=== PATIENT | male | born 1970 | race Caucasian/White ===

== ENCOUNTER → 2017-08-15 | Outpatient (CLI) | payer OTHER ==
[~2017-08-15] MED LIST: ALBIPROI; ALBU3IS INH; ALBU90OI; ALBU90OI INH; ALBU90OI61 INH; ALBUTEROL INH; AMIT50; AMITRIPTYLINE; AMOX500; AMOX500 PO; ASPI325 PO; AZIT500 PO; BENZ100A PO; CARI350; CEPH500 PO; CIME400 PO; CIPR750 PO; CLARITIN OTC; CLON2 PO; CYCL10 PO; DICL25ER PO; DULO30 PO; DULO60 PO; ERYT.5TO BOTHEYES; ERYT250; ERYT500 PO; ETOD200 PO; FLUO10 PO; FLUT220OIA; FLUT44OIA INH; FURO40 PO; HYDACE10B PO; HYDACE5 PO; HYDGUAL120; HYDGUAL120 PO; HYDMOR2 PO; HYDMOR4 PO; IBUP600 PO; IBUP800 PO; Inderal40 MG PO; LATUDA40 MG PO; LIDO700A20 TOP; LORA10ER PO; LORA2 PO; Lasix 10 mg/10 MG/ML PO; METO2.5 PO; MULVITMIND PO; OXYACE5T; OXYACE5T PO; PENVK250; POTCHL20ER PO; PRED10 PO; PRED20 PO; PROACE100 PO; PROM25 PO; PROP10 PO; Percocet 5-3251 EACH PO; RXSULTRIDS PO; Robaxin500 MG PO; SALMOI6.5; SERT100 PO; SULTRIDS PO; SYMBAX; SYMBYAX; TESTOSTERONE; TRAM50 PO; [UNRECOGNIZED DRUG - OTHER] INH; [UNRECOGNIZED DRUG - REMARK]; [UNRECOGNIZED DRUG - REMARK]
[2017-08-15 20:19] LABS: BASOPHILS ABSOLUTE AUTO 0.05 K/mm3 (0.00-0.23); BASOPHILS PERCENT AUTO 1 % (0-2); EOSINOPHILS ABSOLUTE AUTO 0.11 K/mm3 (0.00-0.68); EOSINOPHILS PERCENT AUTO 2 % (0-6); Hemoglobin 18.7 g/dL (13.5-17.5); IMMATURE GRAN ABSOLUTE AUTO 0.01 K/mm3 (0.00-0.10); IMMATURE GRAN PERCENT AUTO 0 % (0-1); LYMPHOCYTES ABSOLUTE AUTO 2.55 K/mm3 (0.84-5.20); LYMPHOCYTES PERCENT AUTO 40 % (21-46); MONOCYTES ABSOLUTE AUTO 0.37 K/mm3 (0.16-1.47); MONOCYTES PERCENT AUTO 6 % (4-13); Mean Corpuscular HGB 29.9 pg (26.0-34.0); Mean Corpuscular HGB Conc 32.7 g/dL (31.5-36.5); Mean Corpuscular Volume 92 fL (80-100); NEUTROPHILS ABSOLUTE AUTO 3.36 K/mm3 (1.96-9.15); NEUTROPHILS PERCENT AUTO 52 % (41-73); RDW Coefficient Variation 12.4 % (11.7-14.2); Red Blood Cell Count 6.25 M/mm3 (4.30-5.90); White Blood Cell Count 6.45 K/mm3 (4.00-11.30)
[2017-08-15 20:23] LABS: Hematocrit 57.2 % (37.0-53.0); Mean Platelet Volume 11.4 fL (9.1-12.4); Platelet Count 140 K/mm3 (150-400)
[2017-08-15 21:08] LABS: Alanine Aminotransfer (ALT/SGP 10 U/L (12-78); Albumin, Blood 3.8 g/dL (3.4-5.0); Alk Phos 140 U/L (50-136); Anion Gap 7 mmol/L (6-16); Aspartate Aminotrans (AST/SGOT 16 U/L (12-37); Bilirubin, Total 0.5 mg/dL (0.1-1.0); Blood Urea Nitrogen 8 mg/dL (8-24); Bun/Creatinine Ratio 10.9 (12.0-20.0); CO2, Blood 31 mmol/L (21-32); Calcium, Blood 8.6 mg/dL (8.5-10.1); Chloride, Blood 100 mmol/L (98-108); Creatinine, Blood 0.74 mg/dL (0.60-1.20); Globulin, Blood 3.9 g/dL (2.2-4.0); Glomerular Filtration Rate >60 (60-); Glucose, Blood 83 mg/dL (70-99); Potassium, Blood 3.9 mmol/L (3.5-5.5); Sodium, Blood 138 mmol/L (136-145); Total Protein, Blood 7.7 g/dL (6.4-8.2)
== END | disposition home or self-care (01) ==
LOC: LAB SHORT 17:30
PROVIDERS: Nurse Practitioner Family
DX: R60.9 Edema, unspecified (principal); R82.99 Other abnormal findings in urine
CPT/HCPCS: 80053; 83880; 85025; 87086

== ENCOUNTER 2017-10-18 21:03 | Emergency (ER) | payer OTHER ==
[~2017-10-18] VITALS: Ht 198.1 cm; Wt 179.6 kg
[~2017-10-18 21:03] MED LIST changes: -FLUO10 PO; -LIDO700A20 TOP; -Robaxin500 MG PO
[2017-10-18] MEDS ORDERED: FLUO10 PO (21:54)
[2017-10-18] MEDS ORDERED: Robaxin500 MG PO (23:23)
[2017-10-18] MEDS ORDERED: LIDO700A20 TOP (23:23)
== END 2017-10-18 23:36 | disposition home or self-care (01) ==
LOC: ER 21:03
DX: M54.2 Cervicalgia (principal); M54.5 Low back pain; Z88.8 Allergy status to other drugs, medicaments and biological substances; Z88.0 Allergy status to penicillin; Z88.5 Allergy status to narcotic agent; Z91.048 Other nonmedicinal substance allergy status; Z88.2 Allergy status to sulfonamides; Z88.1 Allergy status to other antibiotic agents; Z79.899 Other long term (current) drug therapy; J44.9 Chronic obstructive pulmonary disease, unspecified; F17.210 Nicotine dependence, cigarettes, uncomplicated; V43.62XA Car passenger injured in collision with other type car in traffic accident, initial encounter
CPT/HCPCS: 72040; 96372; 99283; J1885

== ENCOUNTER → 2020-04-06 | Outpatient (CLI) | payer OTHER ==
[~2020-04-06] MED LIST changes: +FLUO10 PO; +LIDO700A20 TOP; +Robaxin500 MG PO
[2020-04-08 11:10] LABS: COTININE Negative ng/mL (Cutoff=300)
== END | disposition home or self-care (01) ==
LOC: LAB SHORT 09:36 → LAB 09:36
PROVIDERS: Orthopaedic Surgery
DX: Z01.812 Encounter for preprocedural laboratory examination (principal); M17.11 Unilateral primary osteoarthritis, right knee; F17.200 Nicotine dependence, unspecified, uncomplicated

== ENCOUNTER 2020-05-17 06:45 | Day surgery (SDC) | payer OTHER ==
[~2020-05-17] VITALS: Ht 198.1 cm; Wt 173.0 kg
[~2020-05-17 06:45] MED LIST changes: +BUDESONIDE1 MG/2 M1 NEB; +MIRALAX17 GM PO; +MONT10T PO; +NAPR500 PO; +TRAZ100 PO
[2020-05-17] MEDS ORDERED: Chantix1 MG PO (13:22)
--- NOTE | 2020-05-17 15:58 | NUR ---
PT ARRIVED TO THE ROOM FROM PACU AT APPROXIMATLEY 1330. PT AWAKE AND ORIENTED BUT DROWSY UPON ARRIVAL. R KNEE DRESSING C/D/I. PT ABLE TO WIGGLE HIS TOES. CAP REFIL WNL. PT RATED PAIN AT 8/10 BUT APPEARS RELAXED. KARON PROVIDED PT WITH OXYCODONE TO MANAGE PAIN. PT TOLERATING FOOD AND FLUIDS. VSS. WILL MONITOR UNTIL REPORT TO ONCOMING RN.
--- NOTE | 2020-05-17 18:05 | NUR ---
SHIFT SUMMARY PT IS POD#0 FROM A R TKA WITH DR. LEON. PAIN MANAGED WITH PO PAIN MEDICATION. PT TOLERATING FOOD AND FLUIDS, VOIDING AND WORKED WITH THERAPY. PLAN FOR DC HOME TOMORROW AFTER PT CLEARS THERAPY. VSS. WILL MONITOR UNTIL REPORT TO ONCOMING RN.
[2020-05-18 05:14] LABS: BASOPHILS ABSOLUTE AUTO 0.02 K/mm3 (0.00-0.23); BASOPHILS PERCENT AUTO 0 % (0-2); EOSINOPHILS PERCENT AUTO 0 % (0-6); Hematocrit 42.7 % (37.0-53.0); Hemoglobin 13.8 g/dL (13.5-17.5); IMMATURE GRAN ABSOLUTE AUTO 0.06 K/mm3 (0.00-0.10); IMMATURE GRAN PERCENT AUTO 0 % (0-1); LYMPHOCYTES PERCENT AUTO 10 % (21-46); MONOCYTES ABSOLUTE AUTO 0.85 K/mm3 (0.16-1.47); MONOCYTES PERCENT AUTO 6 % (4-13); Mean Corpuscular HGB 29.2 pg (26.0-34.0); Mean Corpuscular HGB Conc 32.3 g/dL (31.5-36.5); Mean Corpuscular Volume 90 fL (80-100); Mean Platelet Volume 10.2 fL (9.1-12.4); NEUTROPHILS ABSOLUTE AUTO 12.23 K/mm3 (1.96-9.15); NEUTROPHILS PERCENT AUTO 84 % (41-73); Platelet Count 157 K/mm3 (150-400); RDW Standard Deviation 40.4 fL (35.1-46.3); Red Blood Cell Count 4.73 M/mm3 (4.30-5.90); White Blood Cell Count 14.56 K/mm3 (4.00-11.30)
[2020-05-18 05:38] LABS: Anion Gap 3 mmol/L (6-16); Blood Urea Nitrogen 13 mg/dL (8-24); Bun/Creatinine Ratio 16.1 (12.0-20.0); CO2, Blood 32 mmol/L (21-32); Calcium, Blood 8.6 mg/dL (8.5-10.1); Chloride, Blood 102 mmol/L (98-108); Creatinine, Blood 0.81 mg/dL (0.60-1.20); Glomerular Filtration Rate >60 (60-); Glucose, Blood 136 mg/dL (70-99); Potassium, Blood 4.8 mmol/L (3.5-5.5); Sodium, Blood 137 mmol/L (136-145)
--- NOTE | 2020-05-18 06:23 | NUR ---
SHIFT SUMMARY LYING IN SEMI FOWLERS WITH EYES CLOSED WITH TV ON IN THE BACKGROUND. WAS MEDICATED FOR PAIN WITH TYLENOL AND TORADOL SCHEDULED AND PRN OXY PER MD ORDERS. AMBULATED TO BATHROOM SEVERAL TIMES, TOLERATED WELL. STATES HE IS COMFORTABLE AT THIS TIME. HAS BEEN PLEASANT AND COOPERATIVE THROUGH OUT SHIFT. POLAR ARIEL IN PLACE TO RIGHT KNEE. DUSTY WRAP IN PLACE, C/D/I WITHOUT SHADOWING NOTED. DENIES PAIN, DISCOMFORT, OR FURTHER NEEDS AT THIS TIME. SAFETY MEASURES IN PLACE. WILL CONTINUE TO MONITOR AND GIVE HAND OFF TO ONCOMING SHIFT USING SBAR.
--- NOTE | 2020-05-18 07:46 | NUR ---
dr gao here to see pt.
[2020-05-18] MEDS ORDERED: XARELTO20 MG PO (09:07)
[2020-05-18] MEDS ORDERED: Percocet 5-3251 EACH PO (09:08)
--- NOTE | 2020-05-18 10:45 | NUR ---
DISCHARGE: PT EATING AND DRINKING, VOIDING, PASSING GAS. PT CLEARED BY THERAPY TO GO HOME. PT PAIN CONTROLLED ON PO PAIN MEDICATION. PT/FAMILY REPORTS UNDERSTANDING OF DISCHARGE INSTRUCTIONS INCLUDING DRESSING CHANGES AND POLAR PAC. PT SENT WITH PAPERWORK, SCRIPTS, DRESSING SUPPLIES, POLAR PAC.PT REPORTS HAVING WALKER AT HOME.
== END 2020-05-18 10:55 | disposition home or self-care (01) ==
LOC: ORSCMMR 06:45 → ORD 08:15 → ORSCMMR 08:15 → SURS 12:54 → ORSCMMR 05-18 10:55
PROVIDERS: Orthopaedic Surgery
PROC: 8E0YXBZ Computer Assisted Procedure of Lower Extremity (ICD-10-PCS; principal; 2020-05-17 08:15)
PROC: 0SRC0JA Replacement of Right Knee Joint with Synthetic Substitute, Uncemented, Open Approach (ICD-10-PCS; principal; 2020-05-17 08:15)
DX: M17.11 Unilateral primary osteoarthritis, right knee (principal); J44.9 Chronic obstructive pulmonary disease, unspecified; F33.9 Major depressive disorder, recurrent, unspecified; F41.9 Anxiety disorder, unspecified; D75.1 Secondary polycythemia; Z79.51 Long term (current) use of inhaled steroids; Z79.899 Other long term (current) drug therapy; Z87.891 Personal history of nicotine dependence
CPT/HCPCS: 36415; 73560-RT; 80048; 85025; 88300; 94640; 94760; 97110; 97116; 97162; 97530; A9270; C1776; J0171; J0690; J0735; J1100; J1885; J2250; J2405; J2550; J2704; J2765; J2795; J3010; J7120; Q2038

== ENCOUNTER 2021-03-27 12:13 | Emergency (ER) | payer OTHER ==
[~2021-03-27] VITALS: Ht 198.1 cm; Wt 179.6 kg
[~2021-03-27 12:13] MED LIST changes: +Chantix1 MG PO; +XARELTO20 MG PO
[2021-03-27] MEDS ORDERED: Dexamethasone4 MG PO (12:45)
== END 2021-03-27 15:07 | disposition home or self-care (01) ==
LOC: ER 12:13
DX: U07.1 COVID-19 (principal); Z88.0 Allergy status to penicillin; Z88.5 Allergy status to narcotic agent; Z88.2 Allergy status to sulfonamides; Z91.030 Bee allergy status; Z91.048 Other nonmedicinal substance allergy status; J44.9 Chronic obstructive pulmonary disease, unspecified; F32.9 Major depressive disorder, single episode, unspecified; Z79.899 Other long term (current) drug therapy; F17.200 Nicotine dependence, unspecified, uncomplicated
CPT/HCPCS: 99284; J1100

== ENCOUNTER 2024-06-23 14:27 | Inpatient (IN) | payer OTHER ==
[~2024-06-23] VITALS: Ht 198.1 cm; Wt 144.6 kg
[~2024-06-23 14:27] MED LIST changes: +Dexamethasone4 MG PO; +Hair, Skin & N1 EACH PO; -MULVITMIND PO; -TRAZ100 PO; +TRAZ50 PO
[2024-06-23] MEDS ORDERED: Albuterol 2.5 MG/3 ML VIAL INH SCH (14:35)
[2024-06-23 14:54] LABS: BASOPHILS ABSOLUTE AUTO 0.02 K/mm3 (0.00-0.23); BASOPHILS PERCENT AUTO 0 % (0-2); EOSINOPHILS PERCENT AUTO 0 % (0-6); Hematocrit 48.1 % (37.0-53.0); Hemoglobin 16.7 g/dL (13.5-17.5); IMMATURE GRAN ABSOLUTE AUTO 0.06 K/mm3 (0.00-0.10); IMMATURE GRAN PERCENT AUTO 0 % (0-1); LYMPHOCYTES ABSOLUTE AUTO 1.13 K/mm3 (0.84-5.20); LYMPHOCYTES PERCENT AUTO 8 % (21-46); MONOCYTES ABSOLUTE AUTO 1.18 K/mm3 (0.16-1.47); MONOCYTES PERCENT AUTO 9 % (4-13); Mean Corpuscular HGB 30.3 pg (26.0-34.0); Mean Corpuscular HGB Conc 34.7 g/dL (31.5-36.5); Mean Corpuscular Volume 87 fL (80-100); Mean Platelet Volume 9.9 fL (9.1-12.4); NEUTROPHILS PERCENT AUTO 83 % (41-73); Platelet Count 150 K/mm3 (150-400); RDW Standard Deviation 38.9 fL (35.1-46.3); Red Blood Cell Count 5.51 M/mm3 (4.30-5.90); White Blood Cell Count 13.69 K/mm3 (4.00-11.30)
[2024-06-23 15:28] LABS: Albumin, Blood 3.6 g/dL (3.4-5.0); Albumin/Globulin Ratio 0.8 (0.8-1.8); Bilirubin, Total 1.3 mg/dL (0.1-1.0); Bun/Creatinine Ratio 18.3 (12.0-20.0); Calcium, Blood 7.9 mg/dL (8.5-10.1); Creatinine, Blood 0.6 mg/dL (0.60-1.20); Globulin, Blood 4.4 g/dL (2.2-4.0); Potassium, Blood 4.2 mmol/L (3.5-5.5)
[2024-06-23 16:08] LABS: Influenza A, PCR POSITIVE (NEGATIVE); Influenza B, PCR NEGATIVE (NEGATIVE); Resp Syncytial Virus, PCR NEGATIVE (NEGATIVE); SARS-Cov-2 (COVID-19) PCR, MMC NEGATIVE (NEGATIVE)
[2024-06-23] MEDS ORDERED: MethylPREDNISolone Sod Succ 125 MG Vial IV SCH (18:00)
[2024-06-23] MEDS ORDERED: Albuterol 2.5 MG/3 ML VIAL INH PRN (18:05)
[2024-06-23] MEDS ORDERED: NS 1,000 ML IV SCH (18:05)
[2024-06-23] MEDS ORDERED: Ipratropium/Albuterol SulF 2.5-0.5MG/3 ML Amp INH SCH (18:05)
[2024-06-23] MEDS ORDERED: Ondansetron HCl 2 MG / ML 2ML Vial IV PRN (18:05)
[2024-06-23] MEDS ORDERED: FLU VACC TS2024-25(6MOS UP)/PF 45 MCG/0.5 ML SYRINGE IM ONE (18:10)
[2024-06-23] MEDS ORDERED: NS 1,000 ML IV ONE (18:14)
[2024-06-23] MEDS ORDERED: Azithromycin 500 MG in NS 250 ML IV SCH (18:15)
[2024-06-23] MEDS ORDERED: NS 500 ML IV ONE (19:00)
[2024-06-23] MEDS ORDERED: GuaiFENesin 600 MG TabCR PO SCH (21:00)
[2024-06-23] MEDS ORDERED: Oseltamivir Phosphate 75 MG Cap PO SCH (21:00)
[2024-06-23 21:06] VITALS: BP 107/68
[2024-06-23] MEDS ORDERED: Acetaminophen 325 MG TABLET PO PRN (22:50)
[2024-06-24] VITALS (7 sets, daily range): BP systolic 103–132; BP diastolic 56–82
[2024-06-24] MEDS ORDERED: Ibuprofen 400 MG Tab PO PRN (01:00)
[2024-06-24 05:22] LABS: BASOPHILS PERCENT AUTO 0 % (0-2); EOSINOPHILS PERCENT AUTO 0 % (0-6); Hematocrit 46.1 % (37.0-53.0); Hemoglobin 15.6 g/dL (13.5-17.5); IMMATURE GRAN ABSOLUTE AUTO 0.04 K/mm3 (0.00-0.10); IMMATURE GRAN PERCENT AUTO 0 % (0-1); LYMPHOCYTES ABSOLUTE AUTO 0.73 K/mm3 (0.84-5.20); LYMPHOCYTES PERCENT AUTO 8 % (21-46); MONOCYTES ABSOLUTE AUTO 0.37 K/mm3 (0.16-1.47); MONOCYTES PERCENT AUTO 4 % (4-13); Mean Corpuscular HGB 30.1 pg (26.0-34.0); Mean Corpuscular HGB Conc 33.8 g/dL (31.5-36.5); Mean Corpuscular Volume 89 fL (80-100); Mean Platelet Volume 10.3 fL (9.1-12.4); NEUTROPHILS ABSOLUTE AUTO 8.65 K/mm3 (1.96-9.15); NEUTROPHILS PERCENT AUTO 88 % (41-73); Platelet Count 112 K/mm3 (150-400); RDW Coefficient Variation 12.2 % (11.7-14.2); RDW Standard Deviation 39.8 fL (35.1-46.3); Red Blood Cell Count 5.19 M/mm3 (4.30-5.90); White Blood Cell Count 9.79 K/mm3 (4.00-11.30)
[2024-06-24 05:41] LABS: Magnesium, Blood 2.2 mg/dL (1.6-2.4)
[2024-06-24 05:42] LABS: Albumin, Blood 3.1 g/dL (3.4-5.0); Albumin/Globulin Ratio 0.9 (0.8-1.8); Bilirubin, Total 0.7 mg/dL (0.1-1.0); Bun/Creatinine Ratio 25.6 (12.0-20.0); Calcium, Blood 7.7 mg/dL (8.5-10.1); Creatinine, Blood 0.62 mg/dL (0.60-1.20); Globulin, Blood 3.5 g/dL (2.2-4.0); Total Protein, Blood 6.6 g/dL (6.4-8.2)
--- NOTE | 2024-06-24 06:37 | NUR ---
SHIFT SUMMARY PT TRANSFERRED FROM ED AT APPROX 2030. PT A&O4, COOPERATIVE IN CARE AND ABLE TO EXPRESS NEEDS APPROPRIATELY. PT PRESENTED TYPNEIC W A BIPAP O2 SATS AT 93%. NO SKIN BREAKDOWN PRESENT AT TIME OF ARRIVAL. BP, HR AND TEMP ALL WNL. ANXIOUS AT TIMES WITH BIPAP ON. INFORMED PT PRN MEDS CAN NALDO CALLED IN AND TO NOTIFY ME IF ANXIETY IS TOO MUCH. PT STATED HE UNDERSTOOD. BED IN LOWEST POSITION AND CALL LIGHT WITHIN REACH.
[2024-06-24] MEDS ORDERED: Enoxaparin 40 MG/0.4 ML SYR SC SCH (09:00)
[2024-06-24] MEDS ORDERED: Lactobacil 2-S.Thermo-Bifido 1 1 Cap PO SCH (09:00)
[2024-06-24] MEDS ORDERED: Guaifenesin/Dextromethorphan Syrup 5 ML UDC PO PRN (13:55)
--- NOTE | 2024-06-24 18:21 | NUR ---
SHIFT SUMMARY A&OX4, OBEYS COMMANDS, ABLE TO MAKE NEEDS KNOWN, CALLS APPROPATELY, PT ABLE TO WALK TO THE BRP WITH SBA. CONTINUOUS SPO2, SPO2 GREATER THAN 90% ON 8L O2 VIA NC/ AT START , PT HAD COUGHING EPISODES THIS AM THAT WOULD CAUSE HIM TO DESAT INTO THE HIGH 80 S BUT WOULD QUICKLY RECOVER WITH BREATHING TECHNIQUES, LUNGS SOUND WHEEZY T/O, PT STATES HIS BASELINE IS 3L 02 VIA NC, BIPAP AT NIGHT OR TOLERATED. PT IS PCU NO TELE, ECG IS NSR, HR 60 S, DENIES CHEST P/P T/O THIS SHIFT. DENIES NAUSEA/FEELINGS OF CONSTIPATION. PT VOIDING INTO THE URINAL. PT REPORTING A HEADACHE THIS AFTERNOON, MEDICATED PER ORDERS/PT REPORTS HEAD ACHE IMPROVED.
--- NOTE | 2024-06-24 19:00 | NUR ---
ASSUMPTION OF CARE: THIS RN TO TAKE OVER CARE. PATIENT IS ALERT AND ORIENTED X4 AND ACTIVE IN HIS CARE. VITAL SIGNS STABLE AND PATIENT WAS PLACED ON BIPAP MACHINE, GIVEN NIGHT TIME MEDS AND IS RESTING. EVEN AND UNLABORED RESPIRATIONS, BED AT THE LOWEST POSITION AND CALL LIGHT WITHIN REACH.
[2024-06-24] MEDS ORDERED: GuaiFENesin 600 MG TabCR PO SCH (21:00)
[2024-06-25 00:21] VITALS: BP 1325/70
[2024-06-25 03:51] VITALS: BP 116/66
--- NOTE | 2024-06-25 04:45 | NUR ---
SHIFT SUMMARY: PATIENT IS ALERT AND ORIENTED X4 AND ACTIVE IN HIS CARE. SATTING >92% ON BIPAP MACHINE WITH RT FOLLOWING. HAD GOOD OUTPUT THROUGHOUT SHIFT AND WAS ABLE TO COUGH UP SOME PHLEM.VITAL SIGNS STABLE AND NO EVENTS THROUGHOUT SHIFT. PATIENT WAS ABLE TO GET SOME REST. WILL CONTINUE TO MONITOR UNTIL CHANGE OF SHIFT.
[2024-06-25 05:25] LABS: Albumin, Blood 3.2 g/dL (3.4-5.0); Albumin/Globulin Ratio 0.9 (0.8-1.8); Bilirubin, Total 0.4 mg/dL (0.1-1.0); Bun/Creatinine Ratio 27.2 (12.0-20.0); Calcium, Blood 8.5 mg/dL (8.5-10.1); Creatinine, Blood 0.59 mg/dL (0.60-1.20); Globulin, Blood 3.5 g/dL (2.2-4.0); Potassium, Blood 4.4 mmol/L (3.5-5.5); Total Protein, Blood 6.7 g/dL (6.4-8.2)
[2024-06-25 07:26] VITALS: BP 119/64
[2024-06-25 11:35] VITALS: BP 123/64
[2024-06-25 12:34] LABS: PCO2 Arterial 46.7 mmHg (35-45); pH Blood Arterial 7.47 (7.35-7.45)
[2024-06-25 12:35] LABS: PO2 Arterial 47.4 mmHg (80-100)
--- NOTE | 2024-06-25 12:38 | NUR ---
Notified of ABG results by RT Hai at this time. Increased oxygen from 2 l/min to 3 l/min at this time. Pt is sitting up in chair, spo2 88%. NO respiratory distress at this time.
[2024-06-25 15:13] VITALS: BP 129/74
--- NOTE | 2024-06-25 17:37 | NUR ---
SHIFT SUMMARY THE PT IS A&OX4, SBA IN THE ROOM, AND MAKES HIS NEEDS KNOWN. THE PT WAS ON 8L NC THIS MORNING AND WAS TITRAITED TO 2-3L NC. SP02 GOALS 88-93% PER DR. MASON. INOCENCIA RT STATED TO HAVE THE PT A 3L NC D/T ABG RESULTS. THE PT STATES HIS SOB HAS IMPROVED AND HE FEELS BETTER. THE PT TOOK A COUPLE NAPS TODAY AND WORE THE BIPAP W/ 3L BLEED DURING 1 OF THEM. HE IS MEDICAL STATUS W/O TELE AND HIS BP IS STABLE. THE PT USES THE URINAL IND IN THE ROOM. D/T GOOD ORAL INTAKE THE PT'S IV FLUIDS WERE D/C'D THIS SHIFT. NO ACUTE EVENTS. SEE NOTES FOR UPDATES.
[2024-06-25 20:00] VITALS: BP 136/63
--- NOTE | 2024-06-25 20:36 | NUR ---
THIS RN ASSUMED CARE OF PT AT 1900. PT IS ALERT AND ORIENTED X4, VERY PLEASANT, PT IS SITTING IN CHAIR WATCHING TV. PT SOUNDS CLEAR/DIMINSHED, PT DENIES SHORTNESS OF BREATH, PT IS ON 3L NC SATTING >90%. PT IS NOT ON TELE PER ORDER BUT PULSE WAS IN THE 70s, BLOOD PRESSURE STABLE AT 136/63 AND PT DENIES SHORTNESS OF BREATH. PT STATES THEY ARE FEELING BETTER AND PT ALSO WANTED MEDICATIONS TO HELP BREAK UP THE COUGHING AND CLEAR OUT HIS LUNGS. NO OTHER INTERVENTIONS AT THIS TIME. PLAN OF CARE CONTINUED.
--- NOTE | 2024-06-26 00:22 | NUR ---
PT WILL BE TRANSFERING TO MEDICAL FLOOR, NO EVENTS TO REPORT FOR THE TIME THIS RN HAD THE PT. PLAN OF CARE CONTINUED.
[2024-06-26] MEDS ORDERED: [UNRECOGNIZED DRUG - CODE] PO (00:51)
[2024-06-26] MEDS ORDERED: ALBU90OI INH (00:53)
[2024-06-26] MEDS ORDERED: LORAZEPAM0.5 MG PO (00:56)
[2024-06-26] MEDS ORDERED: BUPROPION XL150 M1 PO (00:57)
[2024-06-26] MEDS ORDERED: Inderal80 MG PO (00:58)
[2024-06-26] MEDS ORDERED: TRELEGY ELLIPT1 EACH INH (00:58)
[2024-06-26] MEDS ORDERED: ARIPIPRAZOLE2 M1 PO (00:59)
[2024-06-26] MEDS ORDERED: TRIDERM28.4 GM TOP (01:00)
[2024-06-26] MEDS ORDERED: HYDHCL25 PO (01:01)
[2024-06-26 01:24] VITALS: BP 127/68
--- NOTE | 2024-06-26 02:06 | NUR ---
0147 AGREE WITH PREVIOUS RN'S ASSESSMENT EXCEPT PT IS HAVING BACK PAIN OF 7/10 AND A PRODUCTIVE COUGH, SPUTUM NOT SEEN. GAVE IBUPROFEN AND COUGH SYRUP. WILL EVAL FOR EFFECT. REPORTS SOB WITH EXERTION, ON 4L NC O2 AT 90%. REPORTS CHRONIC N/T IN ARMS THAT IS INCREASED THIS ADMISSION, HE IS NOT SURE IF THE DR IS AWARE OF THIS, WILL HAVE DAY RN INFORM DAY HOSPITALIST. NO OTHER APPARENT SIGNS OF DISTRESS. CALL LIGHT IS IN REACH.
[2024-06-26] MEDS ORDERED: buPROPion HCL 150 MG TAB.SR.12H PO SCH (04:00)
[2024-06-26] MEDS ORDERED: HyDROXyzine HCl 10 MG Tab PO SCH (04:00)
[2024-06-26] MEDS ORDERED: LORazepam 0.5 MG Tab PO PRN (04:05)
[2024-06-26] MEDS ORDERED: Polyethylene Glycol 3350 17 gm PO PRN (04:05)
[2024-06-26] MEDS ORDERED: TraZODone HCl 50 MG Tab PO PRN (04:10)
[2024-06-26] MEDS ORDERED: Propranolol HCL 20 MG TAB PO SCH (04:10)
[2024-06-26 04:55] VITALS: BP 130/70
--- NOTE | 2024-06-26 05:11 | NUR ---
7931 PT REQUESTED HOME MEDS BE ORDERED, SPOKE WITH JORDYN GONZALEZ TO ORDER HOME MEDS. MEDS ARE IN COMPUTER, WAITING FOR PHARMACY TO VERIFY AND THEN WILL ADMINISTER TO PT. PT UP TO SHOWER, SLIGHT ASSIST FROM STARCH COOKER. NO OTHER APPARENT SIGNS OF DISTRESS. CALL LIGHT IS IN REACH.
--- NOTE | 2024-06-26 05:13 | NUR ---
PT IS AAO X 4, INDEPENDENT. REPORTS SOB WITH EXERTION, ON 4L O2 NC AT 90%. REPORTS BACK PAIN, GOT IBUPROFEN. REPORTS PRODUCTIVE COUGH, GOT COUGH SYRUP.
--- NOTE | 2024-06-26 05:15 | NUR ---
ADMINISTERED HOME MEDS THAT WERE REQUESTED. WILL EVAL FOR EFFECT. PT DENIES NEED FOR ANYTHING ELSE AT THIS TIME. NO OTHER APPARENT SIGNS OF DISTRESS. CALL LIGHT IS IN REACH. NO OTHER CHANGES THIS SHIFT.
[2024-06-26 06:38] LABS: Albumin, Blood 3.1 g/dL (3.4-5.0); Albumin/Globulin Ratio 0.9 (0.8-1.8); Bilirubin, Total 0.6 mg/dL (0.1-1.0); Bun/Creatinine Ratio 24.8 (12.0-20.0); Calcium, Blood 8.7 mg/dL (8.5-10.1); Creatinine, Blood 0.57 mg/dL (0.60-1.20); Globulin, Blood 3.5 g/dL (2.2-4.0); Potassium, Blood 4.1 mmol/L (3.5-5.5); Total Protein, Blood 6.6 g/dL (6.4-8.2)
[2024-06-26] MEDS ORDERED: Triamcinolone Acet 0.1% Cream 15 gm TOP SCH (09:00)
[2024-06-26] MEDS ORDERED: Multivitamins 1 Tab PO SCH (09:00)
[2024-06-26] MEDS ORDERED: ARIPiprazole 5 MG Tab PO SCH (09:00)
[2024-06-26] MEDS ORDERED: Montelukast Sodium 10 MG Tab PO SCH (09:00)
[2024-06-26] MEDS ORDERED: OXcarbazepine 300 MG Tab PO SCH (09:00)
[2024-06-26] MEDS ORDERED: Benzonatate 100 MG Cap PO PRN (10:15)
[2024-06-26 15:26] VITALS: BP 122/66
--- NOTE | 2024-06-26 16:18 | NUR ---
PT IS ALERT AND ORIENTED X4, ABLE TO MAKE NEEDS KNOWN. REQUIRED PRN BREATHING TREATMENTS. INTERMITTENT HARSH NONPRODUCTIVE COUGH. TREATED PER EMAR. CONT PULSE OX CONTINUED, 90% ON 1L NC. PT 86-89% ON R/A. INDEPENDENT IN THE ROOM. PLAN IS FOR DISCHARGE 1-2 DAYS DEPENDENT ON O2 NEEDS
[2024-06-26 19:33] VITALS: BP 112/68
[2024-06-26] MEDS ORDERED: MethylPREDNISolone Sod Succ 125 MG Vial IV SCH (21:00)
[2024-06-27 03:33] VITALS: BP 125/71
[2024-06-27 06:46] LABS: Hematocrit 43.7 % (37.0-53.0); Hemoglobin 14.6 g/dL (13.5-17.5); Mean Corpuscular HGB 29.9 pg (26.0-34.0); Mean Corpuscular HGB Conc 33.4 g/dL (31.5-36.5); Mean Corpuscular Volume 90 fL (80-100); Mean Platelet Volume 10.2 fL (9.1-12.4); Platelet Count 136 K/mm3 (150-400); RDW Coefficient Variation 12.1 % (11.7-14.2); RDW Standard Deviation 39.9 fL (35.1-46.3); Red Blood Cell Count 4.88 M/mm3 (4.30-5.90); White Blood Cell Count 7.72 K/mm3 (4.00-11.30)
[2024-06-27 07:32] LABS: Albumin, Blood 3.1 g/dL (3.4-5.0); Albumin/Globulin Ratio 0.9 (0.8-1.8); Bilirubin, Total 0.7 mg/dL (0.1-1.0); Bun/Creatinine Ratio 24.2 (12.0-20.0); Calcium, Blood 8.7 mg/dL (8.5-10.1); Creatinine, Blood 0.62 mg/dL (0.60-1.20); Globulin, Blood 3.5 g/dL (2.2-4.0); Potassium, Blood 4.1 mmol/L (3.5-5.5); Total Protein, Blood 6.6 g/dL (6.4-8.2)
--- NOTE | 2024-06-27 07:49 | NUR ---
SHIFT SUMMARY AT START OF SHIFT, PT SITTING IN BED, WATCHING TV. PT INDEPENDENT IN ROOM. CALLS APPROPRIATELY. PT ON CONTINUOUS BIOX AND IS BRADYCARDIC. PT IS STABLE BUT CONTINUES TO DESAT INTO LOW 90 S TO MID 80 S. PT HEART RATE DROPPED TO 37 BEATS PER MINUTE. THIS RN WENT INTO PT ROOM TO CHECK ON HIM. WHEN THIS RN WENT IN AND HAD HIM SIT UP, HIS HEART RATE RETURNED TO 54BPM.PT CURRENTLY STABLE AT SHIFT CHANGE.
[2024-06-27 07:56] VITALS: BP 120/74
[2024-06-27 08:10] LABS: BAND PERCENT MAN 2 % (0-8); BASOPHILS PERCENT MAN 0 % (0-2); EOSINOPHILS PERCENT MAN 0 % (0-6); LYMPHOCYTES % ATYPICAL MANUAL 1 % (0-0); LYMPHOCYTES ABSOLUTE MAN 0.92 K/mm3 (0.84-5.20); LYMPHOCYTES PERCENT MAN 11 % (21-46); MONOCYTES ABSOLUTE MAN 0.38 K/mm3 (0.16-1.47); MONOCYTES PERCENT MAN 5 % (4-13); NEUTROPHILS ABSOLUTE MAN 6.09 K/mm3 (1.96-9.15); PLASMA CELLS PERCENT MAN 4 % (0-0); SEG NEUTROPHILS PERCENT MAN 77 % (41-73); TOTAL CELLS COUNTED 100
--- NOTE | 2024-06-27 14:43 | NUR ---
SHIFT SUMMARY PT AWAKE DURING SHIFT REPORT, SITTING UP TO CHAIR AT BS. PT UP INDEPENDENTLY IN RM AND TO BTHRM. RT HERE FOR TX. PT ABLE TO TAKE MEDS WHOLE WITH H2O. A&O, PLEASANT AND CO-OP. POSSIBLE D/C TO HOME TODAY OR TOMORROW. PER DR MOJICA, INDERAL HELD THIS AM D/T HR 37-40 BPM AT START OF SHIFT. HR IMPROVED TO 60 BPM. PT ON RA WITH BIOX >90%. PT IS A CURRENT SMOKER WITH SUNI AND NONCOMPLIANT WITH CPAP. MORBIDLY OBESE. PT IN DROPLET ISO FOR INFLUENZA A. NO C/O PAIN. REQUESTED [facility] WITH AFTERNOON MEDS. CALL LT IN REACH. ABLE TO MAKE NEEDS KNOWN.
[2024-06-27 15:23] VITALS: BP 117/66
[2024-06-27 19:19] VITALS: BP 123/65
[2024-06-28 02:57] VITALS: BP 126/76
[2024-06-28 05:27] LABS: Hematocrit 43.6 % (37.0-53.0); Hemoglobin 14.7 g/dL (13.5-17.5); Mean Corpuscular HGB 29.7 pg (26.0-34.0); Mean Corpuscular HGB Conc 33.7 g/dL (31.5-36.5); Mean Corpuscular Volume 88 fL (80-100); Mean Platelet Volume 10.4 fL (9.1-12.4); Platelet Count 152 K/mm3 (150-400); Red Blood Cell Count 4.95 M/mm3 (4.30-5.90); White Blood Cell Count 10.13 K/mm3 (4.00-11.30)
[2024-06-28 05:34] LABS: PCO2 Arterial 44.8 mmHg (35-45); PO2 Arterial 53.2 mmHg (80-100); pH Blood Arterial 7.48 (7.35-7.45)
[2024-06-28 06:01] LABS: Albumin/Globulin Ratio 0.9 (0.8-1.8); Bilirubin, Total 0.5 mg/dL (0.1-1.0); Bun/Creatinine Ratio 25.1 (12.0-20.0); Calcium, Blood 8.4 mg/dL (8.5-10.1); Creatinine, Blood 0.64 mg/dL (0.60-1.20); Globulin, Blood 3.3 g/dL (2.2-4.0); Potassium, Blood 4.1 mmol/L (3.5-5.5); Total Protein, Blood 6.3 g/dL (6.4-8.2)
--- NOTE | 2024-06-28 06:59 | NUR ---
SHIFT SUMMARY AT START OF SHIFT, PT SITTING UP IN HIS BED. PT STABLE AND WATCHING TV. 2100 PROPANALOL HELD FOR CLINICAL JUDGEMENT. PT HEART RATE 49. PT MAINTAINED O2 >88%. PT HEART RATE BETWEEN 39-75BPM THROUGH SHIFT. PT STATES HE IS READY TO GO HOME. 0630, PT UP IN RECLINER WATCHING TV.
[2024-06-28 07:24] VITALS: BP 125/73
[2024-06-28] MEDS ORDERED: Tessalon200 MG PO (13:37)
[2024-06-28] MEDS ORDERED: Q-Tussin100 MG/5 M (13:40)
[2024-06-28] MEDS ORDERED: GUAI600T33 PO (13:40)
[2024-06-28] MEDS ORDERED: PRED20 PO (13:42)
[2024-06-28] MEDS ORDERED: Inderal40 MG PO (13:44)
--- NOTE | 2024-06-28 17:45 | NUR ---
PT AWAKE AT START OF SHIFT, WANTING TO GO HOME. DR MOJICA LATER IN TO DISCUSS PLAN OF CARE AND PLACE D/C ORDERS. MEDS FAXED PER PT REQUEST. PT A&O, INDEPENDENT IN AND TO [facility]. PT'S NOTIFIED OF D/C ORDERS. PT ABLE TO DRESS HIMSELF AND GATHER ALL BELONGINGS. PT ASSISTED OUT TO 'S CAR VIA W/C.
== END 2024-06-28 14:37 | disposition home or self-care (01) | DRG 193 ==
LOC: ER 14:27 → PCU 14:28 → MEDS 14:28 → PCU 20:11 → MEDS 06-26 01:14
PROVIDERS: Emergency Medicine; Family Medicine; Internal Medicine; Nurse Practitioner Acute Care; ADMIT Internal Medicine
PROC: 5A09457 Assistance with Respiratory Ventilation, 24-96 Consecutive Hours, Continuous Positive Airway Pressure (ICD-10-PCS; 2024-06-23)
PROC: 4A133R1 Monitoring of Arterial Saturation, Peripheral, Percutaneous Approach (ICD-10-PCS; principal; 2024-06-25)
DX: J10.1 Influenza due to other identified influenza virus with other respiratory manifestations (principal); J96.01 Acute respiratory failure with hypoxia; J44.1 Chronic obstructive pulmonary disease with (acute) exacerbation; E87.1 Hypo-osmolality and hyponatremia; Z28.21 Immunization not carried out because of patient refusal; G47.33 Obstructive sleep apnea (adult) (pediatric); F32.A Depression, unspecified; M19.90 Unspecified osteoarthritis, unspecified site; Z88.0 Allergy status to penicillin; Z88.8 Allergy status to other drugs, medicaments and biological substances; Z79.01 Long term (current) use of anticoagulants; Z79.899 Other long term (current) drug therapy
CPT/HCPCS: 0241U; 36415; 36600; 71045; 80053; 82803; 83735; 83880; 84484; 85025; 85027; 93005; 93010; 94640; 94644; 94660; 94664; 94760; 94762; 99285-25; A9270; J0456; J1650; J2919; J7030; J7040; J7050

== ENCOUNTER 2025-03-20 15:28 | Inpatient (IN) | payer OTHER ==
[~2025-03-20] VITALS: Ht 198.1 cm; Wt 141.3 kg
[~2025-03-20 15:28] MED LIST changes: -ABILIFY MYCITE2 M2 PO; -METF500 PO; -OLANZAPINE FLU PO
[2025-03-20] MEDS ORDERED: NS 1,000 ML IV SCH (15:45)
[2025-03-20] MEDS ORDERED: Ondansetron HCl 2 MG / ML 2ML Vial IV ONE (15:45)
[2025-03-20] MEDS ORDERED: Ketorolac Tromethamine 15mg Vial IV ONE (15:45)
[2025-03-20] MEDS ORDERED: LevoFLOXacin 750 MG/D5W 150ML 150 ML IV SCH (17:05)
[2025-03-20] MEDS ORDERED: HYDROcodone 5-APAP 325 TAB PO PRN (18:25)
[2025-03-20] MEDS ORDERED: Prochlorperazine Edisylate 10 mg Vial IV PRN (18:25)
[2025-03-20] MEDS ORDERED: FentaNYL Citrate 50 MCG/ML 2 ML Injection IV PRN (18:25)
[2025-03-20] MEDS ORDERED: MetroNIDAZOLE 500MG/NS 100 ml 100 ML IV STA (18:57)
[2025-03-20] MEDS ORDERED: HYDROmorphone HCl/Pf 1MG SYR ONE (19:48)
[2025-03-20] MEDS ORDERED: HYDROmorphone HCl/Pf 1MG SYR IV ONE (20:05)
[2025-03-20] MEDS ORDERED: HYDROmorphone HCl/Pf 1MG SYR IV PRN (20:10)
[2025-03-20] MEDS ORDERED: Lactobacil 2-S.Thermo-Bifido 1 1 Cap PO SCH (21:00)
[2025-03-20 21:41] VITALS: BP 132/82
[2025-03-20] MEDS ORDERED: OLANZAPINE FLU PO (21:59)
[2025-03-20] MEDS ORDERED: METF500 PO (21:59)
[2025-03-20] MEDS ORDERED: ABILIFY MYCITE2 M2 PO (22:48)
[2025-03-20] MEDS ORDERED: Ipratropium/Albuterol SulF 2.5-0.5MG/3 ML Amp INH SCH (23:25)
[2025-03-20] MEDS ORDERED: Formoterol/Mometasone MDI 5/100 mcg 13 GM INH SCH (23:25)
[2025-03-21] VITALS (16 sets, daily range): BP systolic 101–156; BP diastolic 58–97
--- NOTE | 2025-03-21 00:11 | NUR ---
ADMIT PT ADMITTED FOR CHOLECYSTITIS. ARRIVED TO 228 APPROX 2140 VIA W/C. REPORTS HES HAD ABD PAIN ALONG W/NAUSEA FOR PAST 2 DAYS. STATES NO FOOD FOR 48HR. ORIENTED TO RM & CALL LIGHT.
[2025-03-21 05:09] LABS: BASOPHILS ABSOLUTE AUTO 0.04 K/mm3 (0.00-0.23); BASOPHILS PERCENT AUTO 0 % (0-2); EOSINOPHILS ABSOLUTE AUTO 0.03 K/mm3 (0.00-0.68); EOSINOPHILS PERCENT AUTO 0 % (0-6); Hematocrit 45.1 % (37.0-53.0); Hemoglobin 15.0 g/dL (13.5-17.5); IMMATURE GRAN ABSOLUTE AUTO 0.15 K/mm3 (0.00-0.10); IMMATURE GRAN PERCENT AUTO 1 % (0-1); LYMPHOCYTES ABSOLUTE AUTO 1.30 K/mm3 (0.84-5.20); LYMPHOCYTES PERCENT AUTO 7 % (21-46); MONOCYTES ABSOLUTE AUTO 1.11 K/mm3 (0.16-1.47); MONOCYTES PERCENT AUTO 6 % (4-13); Mean Corpuscular HGB Conc 33.3 g/dL (31.5-36.5); Mean Corpuscular Volume 86 fL (80-100); NEUTROPHILS ABSOLUTE AUTO 16.04 K/mm3 (1.96-9.15); NEUTROPHILS PERCENT AUTO 86 % (41-73); NRBC ABSOLUTE 0.00 K/mm3 (0.00-0.02); NRBC Auto 0.0 /100 WBC (0.0-0.2); Platelet Count 117 K/mm3 (150-400); RDW Coefficient Variation 12.7 % (11.7-14.2); RDW Standard Deviation 40.1 fL (35.1-46.3)
--- NOTE | 2025-03-21 05:12 | NUR ---
SHIFT SUMMARY AOX4. NPO SINCE MIDNIGHT FOR PLANNED LAP YESI. REPORTS MIN NAUSEA & MEDICATED 1x W/COMPAZINE, NO EMESIS SINCE ARRIVING TO UNIT. REPORTS 6-10/10 RUQ ABD PAIN, MEDICATED 2x W/1MG IV DILAUDID & PT ABLE TO REST & REPORTS PAIN RELIEF. HAS VOIDED 2x. SURGICAL INFECTION PREVENTION PACKET DONE. SPO2 DROPPED TO 79-80% ON RA WHILE ASLEEP. HAS A HX OF SUNI & COPD. STATES HE NORMALLY WEARS CPAP @[facility], PLACED PT ON 4L 02 & PT ABLE TO MAINTAIN SATS. REST OF VSS. THIS AM PTS STATED "IM TAKING THIS TO THE CAR," LOOKED OVER & WAS HOLDING A VAPE, INFORMED THAT NO LIGHTERS, SMOKING DEVICES CAN BE IN HOSPITAL RM ESPECIALLY SINCE IS ON O2 & IT IS HIGHLY FLAMMABLE- & PT AGREED & STATED SHE WOULD TAKE OUT TO CAR. CALL LIGHT IN REACH.
[2025-03-21 05:24] LABS: Alanine Aminotransfer (ALT/SGP 9.0 U/L (12-78); Albumin, Blood 2.8 g/dL (3.4-5.0); Albumin/Globulin Ratio 0.8 (0.8-1.8); Anion Gap 9.0 mmol/L (3-11); Aspartate Aminotrans (AST/SGOT 15.0 U/L (12-37); Bilirubin, Total 2.1 mg/dL (0.1-1.0); Blood Urea Nitrogen 11.0 mg/dL (8-24); CO2, Blood 27.0 mmol/L (21-32); Calcium, Blood 8.2 mg/dL (8.5-10.1); Chloride, Blood 97.0 mmol/L (98-108); Creatinine, Blood 0.73 mg/dL (0.60-1.20); Globulin, Blood 3.6 g/dL (2.2-4.0); Glucose, Blood 118.0 mg/dL (70-99); Potassium, Blood 3.7 mmol/L (3.5-5.5); Sodium, Blood 129.0 mmol/L (136-145); Total Protein, Blood 6.4 g/dL (6.4-8.2)
[2025-03-21] MEDS ORDERED: MetroNIDAZOLE 500MG/NS 100 ml 100 ML IV SCH (08:00)
--- NOTE | 2025-03-21 08:19 | NUR ---
DR ARREOLA IN TO SEE PT. SPOUSE BEDSIDE.
[2025-03-21] MEDS ORDERED: Bupivacaine 0.5% HCl 5 MG/ML 30MLVIAL ONE (08:48)
[2025-03-21] MEDS ORDERED: NS 1,000 ML IV ONE (09:57)
--- NOTE | 2025-03-21 10:16 | NUR ---
PT TO PRE OP
[2025-03-21] MEDS ORDERED: FentaNYL Citrate 50 MCG/ML 2 ML Injection ONE (10:35)
--- NOTE | 2025-03-21 10:36 | NUR ---
PT BROUGHT TO PACU VIA BED FOR PREOP CARE AT 1020. ALERT & PLEASANT. RESTING QUIETLY. SURGICAL PACK COMPLETE. LR AT TKO. AFEBRILE/VSS. SURGICAL HAT/PAS SLEEVES/BP CUFF PLACED. NO COMPLAINTS. WILL CONTINUE TO MONITOR VS.
--- NOTE | 2025-03-21 10:38 | NUR ---
PT TO OR 3 VIA BED AT 1035 IN STABLE CONDITION.
[2025-03-21] MEDS ORDERED: Albuterol 2.5 MG/3 ML VIAL INH PRN (11:00)
[2025-03-21] MEDS ORDERED: Ondansetron HCl 2 MG / ML 2ML Vial IV PRN (11:00)
[2025-03-21] MEDS ORDERED: FentaNYL Citrate 50 MCG/ML 2 ML Injection IV PRN (11:00)
[2025-03-21] MEDS ORDERED: HYDROmorphone HCl/Pf 1MG SYR IV PRN ×2 (11:00)
[2025-03-21] MEDS ORDERED: Dexamethasone Sod Phos 10 MG/ML 1ML VIAL ONE (11:50)
[2025-03-21] MEDS ORDERED: Rocuronium Bromide 10 MG/ML 5ML Injection IV ONE (11:50)
[2025-03-21] MEDS ORDERED: Ondansetron HCl 2 MG / ML 2ML Vial ONE ×2 (11:50→13:38)
[2025-03-21] MEDS ORDERED: Ketorolac Tromethamine 30mg Vial ONE (12:26)
[2025-03-21] MEDS ORDERED: Sugammadex Sodium 200 MG/2ML SDV (100 MG/ML) ONE (12:27)
[2025-03-21] MEDS ORDERED: Albuterol HFA200 ACT/6.7 GM INH ONE (12:46)
[2025-03-21] MEDS ORDERED: Formoterol/Mometasone MDI 5/100 mcg 13 GM INH SCH (13:00)
[2025-03-21] MEDS ORDERED: Albuterol HFA200 ACT/6.7 GM INH INH PRN (13:00)
[2025-03-21] MEDS ORDERED: Tiotropium Bromide 2.5 MCG/ACT MIST INHAL (10 ACT/4 GM) INH SCH (13:00)
--- NOTE | 2025-03-21 14:09 | NUR ---
pt arrived to room 228 from pacu IN BED. VERY SLEEPY. 02 SATS 92% ON 3L02. LAP SITES X3 CDI W/GAUZE AND TEGADERM. SADE TO RLQ COMPRESSED AND DRAINING SS FLUID. VSS. HAS COOL COMPRESS TO FOREHEAD FOR COMFORT. CALL LIGHT IN REACH. SPOUSE BEDSIDE.
--- NOTE | 2025-03-21 16:31 | NUR ---
pt pulled gigi bulb from tube caught gigi bulb and pulled from tubing. cleaned ends and resecured. placed stat lock to pt's r side to secure gigi bulb. bulb compressed.
--- NOTE | 2025-03-21 16:58 | NUR ---
SUMMARY PT POD 0 LAP YESI W/SADE DRAIN TO RLQ. SADE COMPRESSED AND PUTTING OUT SS FLUID. PT HAS BEEN UP TO CHAIR AND IS CURRENTLY SITTING ON SIDE OF BED. HAS VOIDED AND IS TOLERATING CLEAR LIQUIDS. 02 SATS LOW TO MID 90S ON 3L NC. CALL LIGHT IN REACH. SPOUSE BEDSIDE.
[2025-03-21] MEDS ORDERED: LevoFLOXacin 750 MG/D5W 150ML 150 ML IV SCH (21:00)
[2025-03-22 05:50] VITALS: BP 124/64
--- NOTE | 2025-03-22 05:56 | NUR ---
SHIFT SUMMARY AOX4. VSS. SPO2 >90% ON 4L O2. POD 1 LAP YESI. x3 LAP SITES, C/D/I. SADE DRAIN TO RLQ ABD-DRESSING CHANGED LAST NIGHT. SADE W/155ML SEROSANGUINOUS DRAINAGE. ACTIVE BT. DENIES N/V. TOLERATING REG DIET. REPORTS 8/10 PAIN TO RUQ ABD, MEDICATED 2x W/1MG IV DILAUDID & 2x W/2 TABS NORCO. REPORTS PASSING GAS. VOIDING. PT ABLE TO REST SOUNDLY T/O NIGHT. CALL LIGHT & @BEDSIDE.
[2025-03-22 07:15] VITALS: BP 117/63
[2025-03-22 14:24] VITALS: BP 107/64
--- NOTE | 2025-03-22 17:07 | NUR ---
SHIFT SUMMARY PATIENT AOX4, POD1 LAP YESI. LAP SITES X3 WITH SADE DRAIN. SITES ARE C/D/I. DRAIN WITH S/S OUT PUT. WNL. PATIENT AMBULATES IN SAHA, SHOWERS TODAY. IV ABX T/O SHIFT. MEDICATE FOR PAIN PER EMAR. TOELRATING PO INTAKE. DENIES BM, REPORTS PASSING GAS. BOWEL CARE ORDERED. PATIENT USES CPAP WHILE ASLEEP WITH 2L NC BLEED IN. ON 2-3L NC WHILE AWAKE. SATS REMAIN 90-93%. VOIDING WELL. VSS. ABLE TO MAKE NEEDS KNOWN.
[2025-03-22 19:37] VITALS: BP 110/61
[2025-03-22] MEDS ORDERED: Polyethylene Glycol 3350 17 gm PO SCH (21:00)
[2025-03-23] MEDS ORDERED: HYDROcodone 5-APAP 325 TAB PO PRN ×2 (03:25→03:50)
[2025-03-23 03:39] VITALS: BP 119/61
--- NOTE | 2025-03-23 05:41 | NUR ---
SHIFT SUMMARY NO ACUTE CHANGES TO REPORT OVERNIGHT, IV ANTIBIOTICS PER ORDERS. PT TOLERATING DIET. SURGICAL SITE WNL. SADE DRAIN WITH S/S DISCHARGE. INTERMITTENT ABD PAIN MANANGED WITH MEDS PER EMAR. PT HAS BEEN INDEPENDENT IN THE ROOM. VITALS STABLE. PLAN OF CARE REMAINS UNCHANGED. BED IN LOWEST POSITION, CALL LIGHT WITHIN REACH.
[2025-03-23 08:12] VITALS: BP 105/63
[2025-03-23] MEDS ORDERED: Percocet 5-3251 EACH PO (11:52)
--- NOTE | 2025-03-23 12:32 | NUR ---
DISCHARGE: DR. ARREOLA IN ROOM AT ABOUT 1100. SADE REMOVED, PT OK TO DC. GIVEN PERCOCET SCRIPT. PACKET PRINTED AND PT EDUCATED. PT LEFT UNIT VIA WHEELCHAIR AT ABOUT 1230
== END 2025-03-23 12:39 | disposition home or self-care (01) | DRG 419 ==
LOC: ER 15:28 → SURS 17:11 → ERHOLD 17:11 → SURS 21:40
PROVIDERS: Student in an Organized Health Care Education/Training Program; ADMIT Surgery
PROC: 0FT44ZZ Resection of Gallbladder, Percutaneous Endoscopic Approach (ICD-10-PCS; principal; 2025-03-21 11:00)
PROC: BF121ZZ Fluoroscopy of Gallbladder using Low Osmolar Contrast (ICD-10-PCS; principal; 2025-03-21 11:00)
DX: K80.00 Calculus of gallbladder with acute cholecystitis without obstruction (principal); J44.89 Other specified chronic obstructive pulmonary disease; M19.90 Unspecified osteoarthritis, unspecified site; F31.9 Bipolar disorder, unspecified; F17.200 Nicotine dependence, unspecified, uncomplicated; K76.0 Fatty (change of) liver, not elsewhere classified; Z79.52 Long term (current) use of systemic steroids; Z79.899 Other long term (current) drug therapy; Z79.51 Long term (current) use of inhaled steroids; Z98.890 Other specified postprocedural states; Z88.0 Allergy status to penicillin; Z88.5 Allergy status to narcotic agent; Z88.2 Allergy status to sulfonamides; Z88.8 Allergy status to other drugs, medicaments and biological substances; Z91.030 Bee allergy status; Z91.038 Other insect allergy status; K80.10 Calculus of gallbladder with chronic cholecystitis without obstruction; R10.11 Right upper quadrant pain
CPT/HCPCS: 36415; 74300; 76705; 80053; 83690; 85025; 88304; 93005; 93010; 94640; 94660; 94664; 94762; 99285-25; A9270; C1894; J0780; J1100; J1171; J1885; J1956; J2405; J2704; J3010; J7030; J7120

== ENCOUNTER → 2025-03-20 | Outpatient (CLI) | payer OTHER ==
[~2025-03-20] MED LIST changes: +ABILIFY MYCITE2 M2 PO; +ARIPIPRAZOLE2 M1 PO; +BUPROPION XL150 M1 PO; +GUAI600T33 PO; +HYDHCL25 PO; +Inderal80 MG PO; +LORAZEPAM0.5 MG PO; +METF500 PO; +OLANZAPINE FLU PO; +PROP120ER PO; +Q-Tussin100 MG/5 M; +TRELEGY ELLIPT1 EACH INH; +TRIDERM28.4 GM TOP; +Tessalon200 MG PO; +[UNRECOGNIZED DRUG - CODE] PO
[2025-03-20 14:19] LABS: BASOPHILS ABSOLUTE AUTO 0.03 K/mm3 (0.00-0.23); BASOPHILS PERCENT AUTO 0 % (0-2); EOSINOPHILS ABSOLUTE AUTO 0.01 K/mm3 (0.00-0.68); EOSINOPHILS PERCENT AUTO 0 % (0-6); Hematocrit 49.7 % (37.0-53.0); Hemoglobin 16.8 g/dL (13.5-17.5); IMMATURE GRAN ABSOLUTE AUTO 0.15 K/mm3 (0.00-0.10); IMMATURE GRAN PERCENT AUTO 1 % (0-1); LYMPHOCYTES ABSOLUTE AUTO 1.56 K/mm3 (0.84-5.20); LYMPHOCYTES PERCENT AUTO 8 % (21-46); MONOCYTES ABSOLUTE AUTO 0.93 K/mm3 (0.16-1.47); MONOCYTES PERCENT AUTO 5 % (4-13); Mean Corpuscular HGB Conc 33.8 g/dL (31.5-36.5); Mean Corpuscular Volume 86 fL (80-100); NEUTROPHILS ABSOLUTE AUTO 16.35 K/mm3 (1.96-9.15); NEUTROPHILS PERCENT AUTO 86 % (41-73); NRBC ABSOLUTE 0.00 K/mm3 (0.00-0.02); NRBC Auto 0.0 /100 WBC (0.0-0.2); Platelet Count 155 K/mm3 (150-400); RDW Coefficient Variation 12.8 % (11.7-14.2); RDW Standard Deviation 39.9 fL (35.1-46.3)
[2025-03-20 14:24] LABS: Alanine Aminotransfer (ALT/SGP 9.0 U/L (12-78); Albumin, Blood 3.6 g/dL (3.4-5.0); Albumin/Globulin Ratio 0.9 (0.8-1.8); Anion Gap 8.0 mmol/L (3-11); Aspartate Aminotrans (AST/SGOT 18.0 U/L (12-37); Bilirubin, Total 1.7 mg/dL (0.1-1.0); Blood Urea Nitrogen 12.0 mg/dL (8-24); CO2, Blood 30.0 mmol/L (21-32); Calcium, Blood 8.8 mg/dL (8.5-10.1); Chloride, Blood 95.0 mmol/L (98-108); Creatinine, Blood 0.9 mg/dL (0.60-1.20); Globulin, Blood 4.0 g/dL (2.2-4.0); Glucose, Blood 124.0 mg/dL (70-99); Potassium, Blood 3.9 mmol/L (3.5-5.5); Sodium, Blood 129.0 mmol/L (136-145); Total Protein, Blood 7.6 g/dL (6.4-8.2)
== END ==
LOC: LAB SHORT 13:00 → LAB 13:00
PROVIDERS: Physician Assistant Medical
DX: R10.11 Right upper quadrant pain (principal)
CPT/HCPCS: 80053; 83690; 85025

== ENCOUNTER → 2025-04-04 | Outpatient (CLI) | payer OTHER ==
[~2025-04-04] MED LIST changes: +ABILIFY MYCITE2 M2 PO; +METF500 PO; +OLANZAPINE FLU PO
== END | disposition home or self-care (01) ==
LOC: LAB SHORT 15:22 → LAB 15:22
DX: L03.316 Cellulitis of umbilicus (principal)
CPT/HCPCS: 87070; 87075; 87077; 87147; 87186; 87205